=== PATIENT | male | born 1945 | race Caucasian/White ===

== ENCOUNTER 2016-11-28 15:17 | Emergency (ER) | payer OTHER ==
[~2016-11-28] VITALS: Ht 172.7 cm; Wt 93.1 kg
[~2016-11-28 15:17] MED LIST: ASPIRIN325 MG PO; ASPIRIN81 M1 PO; ATORVASTATIN 20 MG T; DECADRON1 MG PO; FISH OIL SOFTG1 EACH PO; FLEXERIL10 MG PO; GABAPENTIN300 MG PO; GLUCOSAMINE1000 MG PO; LIPITOR20 MG PO; MULTIVITAMIN1 EAC2 PO; OMEPRAZOLE40 M1 PO; OXYCODONE HCL5 MG PO; PERCOCET 5/31 TABLET PO; POTASSIUM CITR10 MEQ PO; TAMSULOSIN HCL0.4 MG PO; VITAMIN D400 UNIT PO; ZOFRAN ODT8 MG PO
[2016-11-28 16:28] LABS: HEMATOCRIT 34.4 % (38.0-50.0); MCH 28.3 PG (29.0-34.0); MCHC 32.3 G/DL (30.0-36.0); MCV 87.8 FL (86-99); RBC DIS.WIDTH-CV 13.2 % (11.8-14.6); RBC DIS.WIDTH-SD 42.6 % (39-53); RED BLOOD COUNT 3.92 M/uL (4.00-5.50); WHITE BLOOD COUNT 11.6 K/uL (4.1-10.2)
[2016-11-28 16:30] LABS: PLATELET COUNT 228 K/uL (156-360)
[2016-11-28 16:37] LABS: CHLORIDE 106 mEq/L (99-109); POTASSIUM 3.5 mEq/L (3.7-5.4); SODIUM 140 mEq/L (136-147)
[2016-11-28 16:39] LABS: GLUCOSE 107 mg/dL (70-99)
[2016-11-28 16:40] LABS: ANION GAP 11 MEQ/L (2-14)
[2016-11-28 16:43] LABS: GFR ESTIMATE (CALCULATED) > 59 mL/min/
[2016-11-28 16:44] LABS: UREA NITROGEN (BUN) 16 mg/dL (9-23)
[2016-11-28 16:53] LABS: BILIRUBIN NEGATIVE; BLOOD NEGATIVE; COLOR YELLOW ((YELLOW)); GLUCOSE (STRIP) NEGATIVE; KETONES NEGATIVE; LEUKOCYTES NEGATIVE; NITRITE NEGATIVE; PROTEIN (STRIP) 30; SPECIFIC GRAVITY 1.014 (1.000-1.030); UROBILINOGEN 0.2 MG/DL (0.2-1.0)
[2016-11-28 16:55] LABS: ADD MIUA? NO; UCUL ADDED? NO
[2016-11-28 19:16] VITALS: BP 125/74
== END 2016-11-28 19:32 | disposition home or self-care (01) ==
LOC: EME 15:17
DX: M54.5 Low back pain (principal); R30.0 Dysuria; Z98.890 Other specified postprocedural states; Z98.1 Arthrodesis status; Z87.442 Personal history of urinary calculi; Z96.651 Presence of right artificial knee joint; Z79.82 Long term (current) use of aspirin
CPT/HCPCS: 72131; 80048; 81003; 85027; 99281; 99283; J3010

== ENCOUNTER → 2017-08-07 | Outpatient (CLI) | payer MEDICARE, OTHER | END | disposition home or self-care (01) | LOC: CDC 15:16 | DX: Z01.810 Encounter for preprocedural cardiovascular examination (principal); G56.01 Carpal tunnel syndrome, right upper limb; M65.321 Trigger finger, right index finger; M65.331 Trigger finger, right middle finger | CPT/HCPCS: 93000 ==